=== PATIENT | female | born 1965 | race Caucasian/White ===

== ENCOUNTER 2017-02-12 10:02 | Emergency (ER) | payer SELFPAY ==
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
[2017-02-12 11:08] VITALS: BP 131/77
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
--- NOTE | 2017-02-12 13:18 | XRay Report ---
LUMBOSACRAL SPINE, 3 VIEWS: History: Back pain Findings: The vertebral bodies, disk spaces and posterior elements are intact. No compression deformity or malalignment. The SI joints are symmetric and unremarkable. Impression: 1. No evidence for acute injury to the lumbar spine.
[2017-02-12] MEDS ORDERED: TORADOL IM ONE (13:34)
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
== END 2017-02-12 14:20 | disposition home or self-care (01) ==
LOC: ED 10:02
DX: M54.5 Low back pain (principal); R51 Headache; M25.562 Pain in left knee; I10 Essential (primary) hypertension
CPT/HCPCS: 70450; 72100; 72125; 73562; 96372; 99284; J1885

== ENCOUNTER 2017-06-17 13:47 | Emergency (ER) | payer SELFPAY ==
[2017-06-17 14:48] VITALS: BP 147/89
[2017-06-17 15:15] LABS: Basophils # (Auto) 0.1 K/mm3 (0.0-0.1); Basophils % (Auto) 0.7 % (0.0-1.8); Eosinophils # (Auto) 0.2 K/mm3 (0.0-0.4); Eosinophils % (Auto) 2.5 % (0.0-4.3); Hematocrit 46.4 % (30.3-42.9); Hemoglobin 14.8 gm/dl (10.1-14.3); Lymphocytes # (Auto) 3.1 K/mm3 (1.2-5.4); Lymphocytes % (Auto) 32.1 % (13.4-35.0); Mean Corpuscular HGB Conc 32 % (30-34); Mean Corpuscular Hemoglobin 27 pg (28-32); Mean Corpuscular Volume 84 fl (79-97); Monocytes # (Auto) 0.7 K/mm3 (0.0-0.8); Monocytes % (Auto) 7.5 % (0.0-7.3); Platelet Count 254 K/mm3 (140-440); Red Cell Distribution Width 15.3 % (13.2-15.2)
[2017-06-17 15:34] LABS: Alanine Aminotransferase 22 units/L (7-56); Albumin 4.3 g/dL (3.9-5); BUN/Creatinine Ratio 26; Blood Urea Nitrogen 18 mg/dL (7-17); Calcium 9.6 mg/dL (8.4-10.2); Hemolysis Index 8
== END 2017-06-17 20:30 | disposition left against medical advice (07) ==
LOC: ED 13:47
DX: R10.9 Unspecified abdominal pain (principal); Z53.21 Procedure and treatment not carried out due to patient leaving prior to being seen by health care provider
CPT/HCPCS: 36415; 80053; 85025

== ENCOUNTER 2017-12-10 07:41 | Emergency (ER) | payer BC ==
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
[2017-12-10 10:34] VITALS: BP 140/80
== END 2017-12-10 10:33 | disposition home or self-care (01) ==
LOC: ED 07:41
DX: H10.33 Unspecified acute conjunctivitis, bilateral (principal); I10 Essential (primary) hypertension
CPT/HCPCS: 99282